=== PATIENT | male | born 1945 | race Two or more races ===

== ENCOUNTER 2020-01-02 19:13 | Emergency (ER) | payer MEDICARE ==
[~2020-01-02] VITALS: Ht 172.7 cm; Wt 77.1 kg
[2020-01-02] MEDS ORDERED: ONDANSETRON ODT 4 MG TAB.RAPDIS SL ONE (19:45)
[2020-01-02] MEDS ORDERED: HYDROCODONE/APAP 10-325 MG TABLET PO ONE (19:45)
[2020-01-02] MEDS ORDERED: ONDANSETRON ODT 4 MG TAB.RAPDIS ONE (19:52)
[2020-01-02] MEDS ORDERED: HYDROCODONE/APAP 10-325 MG TABLET ONE (19:52)
--- NOTE | 2020-01-02 20:10 | NUR ---
pt able to tolerate PO meds as ordered RA NAD
--- NOTE | 2020-01-02 20:11 | NUR ---
pt brought down to [place] acc by [facility] via [facility] [facility]
--- NOTE | 2020-01-02 20:13 | NUR ---
pt back fr CT acc by [employer] via gurney monitored accordingly kept warm dry and comfortable [id number] up
--- NOTE | 2020-01-02 20:18 | NUR ---
pt able to ambulate with assistance towards bathroom
--- NOTE | 2020-01-02 21:45 | NUR ---
Patient discharged to home in stable conditon. Written and verbal after care instructions given. Patient verbalizes understanding of instructions. ambulatory w/ stable gait all belongings w/ pt pt able to transfer fr [facility] to [place] caregiver/technical training manager will drive him back to [facility]
[2020-01-02 22:12] VITALS: BP 134/64
== END 2020-01-02 21:50 | disposition home or self-care (01) ==
LOC: ER 19:15
DX: S62.111A Displaced fracture of triquetrum [cuneiform] bone, right wrist, initial encounter for closed fracture (principal); S09.90XA Unspecified injury of head, initial encounter; E11.9 Type 2 diabetes mellitus without complications; M25.562 Pain in left knee
CPT/HCPCS: 70450; 72125; 73110; A4663; Q0162